=== PATIENT | male | born 1960 | race Caucasian/White ===

== ENCOUNTER 2016-06-19 14:18 | Emergency (ER) | payer OTHER ==
[2016-06-19 14:32] VITALS: BP 173/109; PULSE 81; RESP 18; TEMP 98.6; O2SAT 97
--- NOTE | 2016-06-19 15:52 | EDPHY ---
H & P Time Seen by Provider: 06/19/16 15:52 HPI/ROS: Chief complaint. Leg pain HPI. 55-year-old male slipped on the ice fell 5 days ago. He injured his left knee. He feels that it buckled inside. He has pain with movement as well as swelling. It hurts to walk. Hip and ankle are okay. No previous injury to his knee. No other complaints. ROS Constitutional. no fever/chills, no weakness Eyes. no problems with vision ENT. no sore throat, no nasal drainage Cardiovascular. no chest pain Respiratory. no shortness of breath, no cough Abdominal. no abdominal pain, no nausea/vomiting, no diarrhea . no problems urinating MS. Left knee pain Skin. no rash Lymph. no swollen glands Neuro. no headache, no dizziness, no difficulty walking or with speech Past Medical/Surgical History: Diabetes, hypertension, dyslipidemia Social History: Single, nonsmoker, no alcohol Smoking Status: Former smoker Physical Exam: General Appearance: Alert well-developed male mild distress vital signs stable Eyes: Pupils equal and round no pallor or injection. ENT, Mouth: Mucous membranes are moist. Respiratory: There are no retractions, lungs are clear to auscultation. Cardiovascular: Regular rate and rhythm. Gastrointestinal: Abdomen is soft and nontender, no masses, bowel sounds normal. Neurological: Awake and alert, sensory and motor exams grossly normal. Skin: Warm and dry, no rashes. Musculoskeletal: Neck is supple nontender. Extremities left knee with evidence of some a fusion. No tenderness over the patella or lateral joint line. Medial joint line tenderness with palpation. No laxity to stress. Distal motor vascular sensitivity intact Psychiatric: Patient is oriented X 3, there is no agitation. Constitutional: Initial Vital Signs Temperature (C) 37 C 06/19/16 14:29 Heart Rate 81 06/19/16 14:29 Respiratory Rate 18 06/19/16 14:29 Blood Pressure 173/109 H 06/19/16 14:29 O2 Sat (%) 97 06/19/16 14:29 O2 Delivery Mode Room Air Allergies/Adverse Reactions: No Known Allergies Allergy (Verified 06/19/16 14:32) Home Medications: Medication Instructions Recorded Blood Pressure Medication 06/19/16 GLIPIZIDE 06/19/16 Hydrocodone/APAP 5/325 [[place] 1 each PO Q4-6PRN PRN #14 tab 06/19/16 5/325 (*)] Lipitor 06/19/16 metFORMIN SR 06/19/16 Medical Decision Making - Diagnostics Imaging: X-ray interpreted by me of the left knee shows a suprapatellar effusion but no fracture or dislocation ED Course/Re-evaluation: Re-evaluation at 4:50 p.m.. The patient and I discussed imaging study results, treatment plan, if criteria for return, importance of follow-up and further evaluation. He expresses understanding and agreement Patient is placed in a leg immobilizer. Post knee immobilizer application shows good anatomic position and distal motor vascular sensitivity to be intact [facility]. We will also give him local orthopedist. Differential Diagnosis: I considered fracture, dislocation, sprain, ligamental injury Departure - Departure Disposition: Home, Routine, Self-Care Clinical Impression: Left knee sprain Qualifiers: Encounter type: initial encounter Involved ligament of knee: medial collateral ligament Qualifier Code: (S83.412A) Sprain of medial collateral ligament of left knee, initial encounter Condition: Good Instructions: Knee Sprain (ED), Knee Immobilizer (ED) Additional Instructions: Keep leg elevated as much as possible next 2-3 days. Wear the knee immobilizer until you follow up with [facility] the [facility] or orthopedist who is name I will give you. Ibuprofen 600 mg every 6 hours. Hydrocodone in addition for pain. Return for worsening symptoms. [facility] without fail Referrals: [place],. [Primary Care Provider] - As per Instructions Ken Salinas MD [Medical Doctor] - As per Instructions Prescriptions: Hydrocodone/APAP 5/325 [[place] 5/325 (*)] 1 each PO Q4-6PRN PRN #14 tab PRN Reason: Pain, Moderate
--- NOTE | 2016-06-19 16:46 | DX ---
Left Knee, Five Views 4:26 p.m. Clinical History: 55-year-old male complaining of left-sided medial knee pain, with no antecedent tra betty. Comparison Study: None. Findings: There is a moderate-sized suprapatellar joint effusion. There is no loose osteochondral bod y, or synovial or meniscal calcification. There are some vascular calcifications seen posteriorly. Th ere is a prominent enthesophyte along the anterior superior patella. On the sunrise view, there is a mild degree of peripherolateral patellofemoral joint space narrowing, without cynthia subluxation. A no rmal-variant bone island is seen in the distal medial portion of the femur. There is no osteolytic le monica, fracture, dislocation, or periostitis. There is some minor degenerative pinnacling of the tibia l spines. Impression: There are some mild osteoarthritic features, and evidence of a moderate-sized suprapatell ar joint effusion. There is no acute fracture identified.
== END 2016-06-19 17:14 | disposition home or self-care (01) ==
DX: S83.412A Sprain of medial collateral ligament of left knee, initial encounter (principal); I10 Essential (primary) hypertension; E11.9 Type 2 diabetes mellitus without complications; Z87.891 Personal history of nicotine dependence; W00.0XXA Fall on same level due to ice and snow, initial encounter
CPT/HCPCS: 73564; 99283; L1830

== ENCOUNTER 2016-09-07 20:38 | Emergency (ER) | payer OTHER ==
--- NOTE | 2016-09-07 20:55 | EDPHY ---
H & P Time Seen by Provider: 09/07/16 20:55 HPI/ROS: CHIEF COMPLAINT: Altered HISTORY OF PRESENT ILLNESS: Brought in an arc hold after being found altered and admitting to lots of alcohol. Slurred speech. Could not walk. Admits to rum and Coke to me, was found passed out in an [facility]. REVIEW OF SYSTEMS: Further history and review of systems unobtainable because of the patient's altered mental status and slurred speech. A comprehensive 10 point review of systems is otherwise negative aside from elements mentioned in the history of present illness. PAST MEDICAL HISTORY: Diabetes Social history: Smoking and alcohol General Appearance: Alert and conversant, cooperative. Slurred speech. Eyes: No scleral icterus. ENT, Mouth: Normal mucous membranes. No external evidence of head trauma. Respiratory: Normal respiratory effort, breath sounds equal, lungs are clear to auscultation. Cardiovascular: Regular rate and rhythm. Gastrointestinal: Abdomen is soft and non tender. Neurological: Alert and oriented x3. Slurred speech. Face symmetric, normal movement and sensation in all extremities. Skin: Warm and dry, no bruising or abrasion or lacerations. Musculoskeletal: No peripheral edema and no joint swelling. Psychiatric: Not agitated. Emergency Department course/MDM: Chem 7, serum ethanol, observed in the emergency department until clinically sober and ready for detox. 2330: Alert, ambulatory, no medical complaints, stable for discharge to detox. Smoking Status: Former smoker Constitutional: Initial Vital Signs Temperature (C) 36.7 C 09/07/16 20:45 Heart Rate 108 H 09/07/16 20:45 Respiratory Rate 18 09/07/16 20:45 Blood Pressure 158/99 H 09/07/16 20:45 O2 Sat (%) 95 09/07/16 20:45 O2 Delivery Mode Nasal Cannula O2 (L/minute) 2 Allergies/Adverse Reactions: No Known Allergies Allergy (Verified 09/07/16 21:00) Home Medications: Medication Instructions Recorded Blood Pressure Medication 06/19/16 GLIPIZIDE 06/19/16 Hydrocodone/APAP 5/325 [[place] 1 each PO Q4-6PRN PRN #14 tab 06/19/16 5/325 (*)] Lipitor 06/19/16 metFORMIN SR 06/19/16 Medical Decision Making Differential Diagnosis: Differential diagnosis considered for altered mental status including but not limited to hypoglycemia, infectious process, electrolyte abnormality, head injury and intoxicants. - Data Points Laboratory Results: Laboratory Results 09/07/16 21:14 09/07/16 21:14 Sodium 137 mEq/L mEq/L (134-144) Potassium 4.4 mEq/L mEq/L (3.5-5.2) Chloride 100 mEq/L mEq/L (97-110) Carbon Dioxide 21 mEq/l L mEq/l (22-31) Anion Gap 16 mEq/L mEq/L (8-16) BUN 10 mg/dL mg/dL (7-23) Creatinine 0.7 mg/dL mg/dL (0.7-1.3) Estimated GFR > 60 Glucose 214 mg/dL H mg/dL (70-100) Calcium 9.0 mg/dL mg/dL (8.5-10.4) Ethyl Alcohol 354 mg/dL H mg/dL (0-10) Departure - Departure Disposition: Home, Routine, Self-Care Clinical Impression: Alcoholic intoxication Instructions: Alcohol Intoxication (ED) Referrals: Patient,NotPresent [Unknown] - As per Instructions Isiah Agarwal MD [Medical Doctor] - As per Instructions
[2016-09-07 21:51] LABS: ANION GAP 16 mEq/L (8-16); CARBON DIOXIDE 21 mEq/l (22-31); CHLORIDE 100 mEq/L (97-110); CREATININE 0.7 mg/dL (0.7-1.3); GLOMERULAR FILTRATION RATE > 60; GLUCOSE 214 mg/dL (70-100); POTASSIUM 4.4 mEq/L (3.5-5.2); SODIUM 137 mEq/L (134-144)
[2016-09-07 22:25] LABS: ETHANOL SERUM 354 mg/dL (0-10)
[2016-09-07 23:36] VITALS: BP 143/92; PULSE 110; RESP 20; O2SAT 95
[2016-09-07 23:58] VITALS: TEMP 97.9
== END 2016-09-07 23:57 | disposition home or self-care (01) ==
LOC: EDUNIT#
DX: F10.129 Alcohol abuse with intoxication, unspecified (principal); E11.9 Type 2 diabetes mellitus without complications; Z87.891 Personal history of nicotine dependence; Z79.84 Long term (current) use of oral hypoglycemic drugs
CPT/HCPCS: G0480